=== PATIENT | female | born 1990 | race African-American/Black ===

== ENCOUNTER 2017-02-22 08:03 | Emergency (ER) | payer BC | END 2017-02-22 09:13 | disposition home or self-care (01) | LOC: ERS 08:03 | DX: N63.10 Unspecified lump in the right breast, unspecified quadrant (principal) ==

== ENCOUNTER 2017-05-17 13:05 | Emergency (ER) | payer BC, OTHER, SELFPAY | END 2017-05-17 13:56 | disposition home or self-care (01) | LOC: ERS 13:05 | DX: J30.9 Allergic rhinitis, unspecified (principal) | CPT/HCPCS: 87804; 99283 ==

== ENCOUNTER 2017-05-30 17:46 | Emergency (ER) | payer OTHER | END 2017-05-30 19:31 | disposition left against medical advice (07) | LOC: ERS 17:46 | DX: Z53.21 Procedure and treatment not carried out due to patient leaving prior to being seen by health care provider (principal) ==

== ENCOUNTER 2019-02-17 07:38 | Emergency (ER) | payer BC, OTHER | END 2019-02-17 08:05 | disposition home or self-care (01) | LOC: ERS 07:38 | DX: Z32.00 Encounter for pregnancy test, result unknown (principal) | CPT/HCPCS: 99281 ==

== ENCOUNTER 2020-01-31 09:45 | Outpatient (CLI) | payer OTHER ==
--- NOTE | 2020-01-31 14:13 | ULT ---
OBSTETRICAL ULTRASOUND: 01/31/20 INDICATION: Evaluate anatomy and cervix. FINDINGS: A single live intrauterine gestation in breech presentation with cardiac activity noted at 144 beats per minute. Placenta is posterior in location. The placenta is slightly low lying ending 1 cm above t he level of the internal os. Cervix measures 4.5 cm in length. The visualized head, heart, stom ach, kidneys, cord insertion, bladder, spine, extremities and three vessel cord appear within normal limits. Lips and nose were not well seen. MAULIK measures 16.5 cm. The biparietal diameter measured 4.73 cm giving estimated gestational age of 20 weeks and 3 days. Head circumference diameter measured 17/.81 cm giving estimated gestational age of 20 weeks and 2 day s. Abdominal circumference diameter measured 15.13 cm giving estimated gestational age of 20 weeks and 3 days. Femoral length was 3.19 cm giving estimated gestational age of 20 weeks and 0 days. Estimated weight is 337 grams +/- 49 grams (56th percentile). Average gestational age by ultras ound is 20 weeks and 2 days. Estimated due date is 06/17/2020. Clinical age is 20 weeks and 0 days. Es timated due date is 06/19/2020. IMPRESSION: 1. Single live intrauterine gestation with size and dates as above. 2. Slightly low lying posterior placenta. Follow-up examination in one to two weeks is recommend ed to re-evaluate this region. 3. survey appear within normal limits. Lips and nose were not well seen. Follow-up examina tion in one to two weeks would be helpful with complete survey. POS: [facility]
== END 2020-01-31 09:46 | disposition home or self-care (01) ==
LOC: BICULT 09:45
PROVIDERS: ATTEND Family Medicine
DX: O09.92 Supervision of high risk pregnancy, unspecified, second trimester (principal)
CPT/HCPCS: 76805

== ENCOUNTER 2020-05-30 20:59 | Emergency (ER) | payer OTHER ==
[2020-05-30] MEDS ORDERED: Acetaminophen 500 MG TAB ONE (21:33)
== END 2020-05-30 22:15 | disposition home or self-care (01) ==
LOC: ERS 20:59
DX: N61.0 Mastitis without abscess (principal)
CPT/HCPCS: 99283